=== PATIENT | male | born 1975 | race Caucasian/White ===

== ENCOUNTER 2021-06-23 06:25 | Emergency (ER) | payer OTHER ==
[~2021-06-23] VITALS: Ht 162.6 cm; Wt 72.7 kg
[2021-06-23 06:31] VITALS: TEMP 98.5
[2021-06-23] MEDS ORDERED: CLEOCIN HCL300 MG PO (06:45)
[2021-06-23 06:48] VITALS: BP 141/90; PULSE 73
== END 2021-06-23 06:48 | disposition home or self-care (01) ==
LOC: COL.ER 06:25
DX: L03.114 Cellulitis of left upper limb (principal)